=== PATIENT | female | born 1955 | race Caucasian/White ===

== ENCOUNTER 2016-09-07 11:51 | Day surgery (SDC) | payer OTHER ==
[~2016-09-07] VITALS: Ht 170.2 cm; Wt 79.4 kg
[~2016-09-07 11:51] MED LIST: CHOL500051 PO; CYAN50008 PO; LEVO112T4 PO; LORA1TAB PO; Lactated Ringer's 1,000 ML IV ONE; Lactated Ringer's 1,000 ML IV SCH; MELA1TAB10 PO; MIRT15TA6 PO; MetoCLOpramide 5 mg/mL 2 mL Inj IVPUSH PRN; Ondansetron 2 mg/mL 2 mL Inj IVPUSH PRN; PARO40TA3 PO; QUET100T69 PO; RANI-426 PO; SOY155CA PO
[2016-09-07] MEDS ORDERED: Propofol 10,000 mCg/mL 20 mL Inj ONE (11:52)
[2016-09-07 12:06] VITALS: BP 155/97; PULSE 78; RESP 14; O2SAT 98
[2016-09-07] MEDS ORDERED: SUCR1TAB30 PO (12:12)
[2016-09-07] MEDS ORDERED: NAPR220C11 PO (12:12)
--- NOTE | 2016-09-07 13:15 | PCM.HPANE ---
Patient Data Surgeon Admitting Provider: Attending Provider:Dewayne Siddiqui MD Primary Care Physician:Shawna Fay MD Other Provider:Radha Clay Anesthesia Reason for Visit Dysphagia Ht/WT & BMI Height (Feet): 5 Height (Inches): 7 Weight (Kilograms): 79.38 Body Mass Index 27.00 Allergies Coded Allergies: Iodinated Contrast Media - IV Dye (Verified Allergy, Severe, convulsions, 09/20/15) Neuromuscular Blockers, Steroidal (Verified Allergy, Unknown, 09/20/15) pantoprazole sodium (Verified Allergy, Unknown, 09/20/15) Past Anesthesia History Anesthesia History: Denies:: Abnormal Airway, Anesthesia Reactions, Difficult Intubation, Fam Anesthesia Reaction, Fam Malignant Hypertherm, Malignant Hyperthermia Diabetes History Hx Diabetes?: No MRSA MRSA: No Medications Home Meds Incl Beta Sudha: No Active Scripts Quetiapine Fumarate 100 Mg Pbregj322 Mg PO DAILY 30 Days Prov:Guy Chance MD 01/05/15 Lorazepam 1 Mg Tablet1 Mg PO BID PRN For Anxiety or Agitation 14 Days Prov:Guy Chance MD 01/05/15 Reported Medications Naproxen Sodium (Aleve)220 Mg Sdwpfnh963 Mg PO DAILY PRN For Pain 09/07/16 Sucralfate (Carafate)1 Gm Tablet1 Gm PO QID Ref 0 09/07/16 Cyanocobalamin (Vitamin B-12) (Vitamin B12)5,000 Mcg Tab.rapdis5,000 Mcg PO DAILY 10/07/15 Cholecalciferol (Vitamin D3) (Vitamin D)5,000 Unit CapsuleUnknown Dose PO DAILY 09/23/15 Ranitidine 75 Mg Lxsceg90 Mg PO BID 09/23/15 Melatonin (Melatonin 1 mg Tablet)1 Each Tablet1 Mg PO HS Ref 0 09/20/15 Levothyroxine 112 Mcg Xcvshe389 Mcg PO DAILY For Thyroid Replacement 02/21/14 Discontinued Reported Medications Soy Isofla/Blk Cohosh/Mag Bark (Estroven 155 mg Capsule)155 Mg Ducqbvy145 Mg PO DAILY 10/07/15 Paroxetine 40 Mg Bvviqq24 Mg PO HS 30 Days Ref 0 09/23/15 Discontinued Scripts Mirtazapine 15 Mg Jfavcw38 Mg PO HS PRN Insomnia 14 Days Prov:Guy Chance MD 01/05/15 History History of ENT Problems?: Yes HEENT History: Positive for:: Dysphagia (HX OF MULTIPLE ESOPHAGEAL DILATIONS) Hearing Problem Denies:: Abnormal Airway Difficult Intubation Denture Type: None Teeth Condition: Missing Teeth Other HEENT Pertinent History: HEARING AIDES LEFT AT HOME Hx of Heart Problems?: No Cardiovascular History: Denies:: AICD Atrial Fibrillation Chest Pain Congestive Heart Failure Hypertension Pacemaker Valvular Heart Disease Hx of Respiratory Problem?: No Respiratory History: Denies:: Asthma COPD Cough Hemoptysis Pneumonia Tuberculosis Hx Neurologic Problems?: Yes (schizoaffective disorder) Neurological History: Denies:: CVA Hx of GI Problems?: Yes (requires multiple EGD's/dilations) Gastrointestinal History: Denies:: Cirrhosis Diverticulitis Gall Bladder Disease Gastroesphageal Reflux Hiatal Hernia Liver Disease Rectal Bleeding Hx of Problems?: No Genitourinary History: Denies:: HX of Hemodialysis Kidney Stones Urinary Tract Infection HX of Peritoneal Dialysis: No Female Hx: Denies:: Currently Hx Musculoskeletal Problems?: No Musculoskeletal History: Denies:: Fibromyalgia Joint Replacement Hx of Psycho/Social Problems?: Yes Psycho Social History: Positive for:: Anxiety (PARANOIA) Hx Depression (ON AND OFF) Suicide Attempt Denies:: Bipolar Disorder Hx Surgeries?: Yes (HYSTERECTOMY, BROKEN JAW, BROKEN ANKLE, HERNIA REPAIR, GASTRIC REPAIR) Hx Any Other Health Problems?: Yes Other History: Positive for:: Hospitalization Hx Diabetes: No Hx Alcohol Use: Yes (OCC)Hx Substance Use: Yes Smoking Status: Former Smoker Have You Smoked inLast 12 mo: No Stop/Bang Treated for Sleep Apnea?: No Do You Have a CPAP Machine?: No Risk Assessment Category Category 1A: Patient has history of documented sleep apnea, and HAS NOT received any narcotic, sedative or anesthesia administration during this stay. Category 1B: Patient has history of documented sleep apnea, and HAS received any narcotic , sedative or anesthesia administration during this stay Category 2: Patient has SUSPECTED Obstructive Sleep Apnea, and HAS received any narcotic , sedative or anesthesia administration during this stay. Category 3: Patient has SUSPECTED Obstructive Sleep Apnea and HAS NOT received narcotic, sedative or anesthesia administration during this stay. Category 4: Outpatient in Procedural Areas with known sleep apnea or who screen positive for High Risk via the STOP/BANG questionnaire. Exam Exam Vital Signs Vital Signs Date Time Temp Pulse Resp B/P Pulse Ox O2 Delivery O2 Flow Rate FiO2 09/07/16 12:06 36.5 78 14 155/97 98 Room Air General Appearance: Alert, Oriented X3 HEENT/AIRWAY: MP 3, Neck Movement (FROM) Lungs: Clear to Auscultation, Clear to Percussion Heart: Exam Unremarkable, Regular Rate/Rhythm Plan Impression Patient chart reviewed, patient interviewed and anesthestic plan with risks, benefits, and alternatives discussed, and informed consent obtained. ASA Physical Status: ASA3 Severe Disease Anesthetic Plan: MAC Bene/Risks/Altern/Consents: Yes HP Complete Prior to Induction: Yes Evan Jerez MD Sep 07, 2016 13:15
--- NOTE | 2016-09-07 14:02 | PCM.ANEP1 ---
Post Anesthesia Phase 1 PACU Phase 1 Assessment Vital Signs Vital Signs Date Time Temp Pulse Resp B/P Pulse Ox O2 Delivery O2 Flow Rate FiO2 09/07/16 12:06 36.5 78 14 155/97 98 Room Air Anesthetic Administered: MAC Level of Alertness: Awake, talking CHAN's with Equal Strength: Yes Pain: No Nausea or Vomiting: No Cardiovascular Function and Hy: Yes Oxygen Delivery: Room Air Lungs: Clear to Auscultation, Clear to Percussion Comments See anesth record for PACU VS. PACU VSS Evan Jerez MD Sep 07, 2016 14:02
[2016-09-07 14:03] VITALS: BP 144/94; PULSE 70; RESP 16; O2SAT 98
[2016-09-07 14:10] VITALS: BP 142/93; PULSE 70; RESP 16; O2SAT 97
[2016-09-07 14:19] VITALS: BP 146/95; PULSE 68; RESP 16; O2SAT 97
--- NOTE | 2016-09-07 22:56 | ENDO ---
[address] [address] ENDOSCOPY PROCEDURE PATIENT: MELI HUERTA : 1955 MR#: [id number] ADMIT: 09/07/2016 JOB ID: [id number] PROCEDURE: Esophagogastroduodenoscopy. INDICATIONS: Dysphagia. The patient's ASA classification, Mallampati score, medications are as per anesthesia report. INSTRUMENTS USED: GIF H 180 as well as a GIF P190 5.4 mm scope. PROCEDURE DETAILS: After informed consent was obtained, the patient was brought to the GI suite where she was placed on oxygen via nasal cannula and monitored with continuous pulse oximeter, telemetry, and blood pressure monitoring. A time-out was performed. Then, she was placed in a left lateral decubitus position and medications were administered for sedation. A bite block was placed. The standard esophagogastroduodenoscopy scope was inserted through the bite block and advanced to approximately 38 cm. At this point, we encountered a stricture and we were unable to traverse the stricture with the standard EGD scope. The mucosa above the stricture appeared to be ulcerated and friable. At this point, the standard upper endoscope was then removed and the 5 point mm scope was then introduced through the bite block and advanced to the stricture. There was some minimal resistance, however, with gentle pressure, we were able to traverse the stricture into the proximal gastric body. At this point, the scope was then withdrawn and the stricture appeared to be a focal stricture. The scope was then withdrawn and this standard upper endoscope was then introduced back through the bite block and advanced to the site of the stricture. At this point, using TTS balloons, we dilated the stricture from 6 mm to 9 mm sequentially. Following dilation to 9 mm, there was a superficial tear at the stricture. At this point, no further dilation was performed and following dilation to 9 mm, we were able to advance the standard upper endoscope with gentle brush pressure into the gastric body. Retroflexion was performed which revealed just some mild bleeding from the site of the stricture, but otherwise no mass lesions seen. The remainder of the examination which included the duodenum, antrum and gastric body was otherwise unremarkable. The scope was then withdrawn and procedure was completed. FINDINGS: Focal stricture at 38 cm sequentially dilated from 6 mm to 9 mm with a TTS balloon. RECOMMENDATIONS: As patient has allergies to PPI, will recommend that she start ranitidine 150 mg twice a day and will plan for repeat EGD in two weeks with dilation. COMPLICATIONS: None. ESTIMATED BLOOD LOSS: Less than 5 mL.
== END 2016-09-07 23:59 | disposition home or self-care (01) ==
LOC: END 11:51
PROVIDERS: ATTEND Internal Medicine Gastroenterology
DX: K22.2 Esophageal obstruction (principal); R13.10 Dysphagia, unspecified; K44.9 Diaphragmatic hernia without obstruction or gangrene
CPT/HCPCS: 43249; J7120

== ENCOUNTER 2016-09-20 10:35 | Day surgery (SDC) | payer OTHER ==
[~2016-09-20] VITALS: Ht 170.2 cm; Wt 78.9 kg
[~2016-09-20 10:35] MED LIST changes: +0.9% Sodium Chloride 1,000 ML IV SCH; +Dexamethasone 4 mg/mL Inj IVPUSH PRN; +EPHEDrine Sulfate 50 mg/mL Inj IVPUSH PRN; +HYDROmorphone 1 mg/mL Inj IVPUSH PRN; +Labetalol 5 mg/mL 4 mL Inj IV PRN; -Lactated Ringer's 1,000 ML IV SCH; +Lactated Ringer's 500 ML IV PRN; -MIRT15TA6 PO; +NAPR220C11 PO; -PARO40TA3 PO; +Phenylephrine 10,000 mCg/mL Inj IVPUSH PRN; -SOY155CA PO; +SUCR1TAB30 PO; +Sodium Chloride LOK Flush 10 mL Syringe IV PRN; +fentaNYL-PF 50 mCg/mL 2 mL Inj IVPUSH PRN; +hydrALAZINE 20 mg/mL Inj IVPUSH PRN
[2016-09-20] MEDS ORDERED: Ketamine 10 mg/mL 20 mL Inj ONE (10:36)
[2016-09-20] MEDS ORDERED: Propofol 10,000 mCg/mL 20 mL Inj ONE (10:36)
[2016-09-20] MEDS ORDERED: fentaNYL-PF 50 mCg/mL 2 mL Inj ONE (10:36)
[2016-09-20 10:52] VITALS: BP 145/90; PULSE 77; RESP 14; O2SAT 97
[2016-09-20] MEDS ORDERED: UBID50TA3 PO (10:58)
[2016-09-20] MEDS ORDERED: CYCL7.5T27 PO (10:58)
[2016-09-20] MEDS ORDERED: ASCO100089 PO (10:58)
[2016-09-20] MEDS: Lactated Ringer's 1,000 ML IV SCH ×2 (11:03→12:18)
--- NOTE | 2016-09-20 11:56 | PCM.HPANE ---
Patient Data Date of Service: September 20, 2016 Surgeon Admitting Provider: Attending Provider:Dewayne Siddiqui MD Primary Care Physician:Shawna Fay MD Other Provider:Radha Clay Anesthesia Reason for Visit Esophageal Stricture Ht/WT & BMI Height (Feet): 5 Height (Inches): 7 Weight (Kilograms): 78.93 Body Mass Index 27.00 Allergies Coded Allergies: Iodinated Contrast Media - IV Dye (Verified Allergy, Severe, convulsions, 09/20/15) Neuromuscular Blockers, Steroidal (Verified Allergy, Unknown, 09/20/15) pantoprazole sodium (Verified Allergy, Unknown, 09/20/15) Past Anesthesia History Anesthesia History: Denies:: Abnormal Airway, Anesthesia Reactions, Difficult Intubation, Fam Anesthesia Reaction, Fam Malignant Hypertherm, Malignant Hyperthermia Diabetes History Hx Diabetes?: No MRSA MRSA: No Medications Home Meds Incl Beta Sudha: No Active Scripts Quetiapine Fumarate 100 Mg Gbdqdp204 Mg PO DAILY 30 Days Prov:Guy Chance MD 01/05/15 Lorazepam 1 Mg Tablet1 Mg PO BID PRN For Anxiety or Agitation 14 Days Prov:Guy Chance MD 01/05/15 Reported Medications Ascorbic Acid (Vitamin C)1,000 Mg Tab.chew1,000 Mg PO DAILY Ref 0 09/20/16 Ubidecarenone (Coq10)50 Mg Tab.chew50 Mg PO DAILY 09/20/16 Cyclobenzaprine 7.5 Mg Tablet7.5 Mg PO HS PRN Spasm Ref 0 09/20/16 Naproxen Sodium (Aleve)220 Mg Olacigw107 Mg PO DAILY PRN For Pain 09/07/16 Sucralfate (Carafate)1 Gm Tablet1 Gm PO QID Ref 0 09/07/16 Cyanocobalamin (Vitamin B-12) (Vitamin B12)5,000 Mcg Tab.rapdis5,000 Mcg PO DAILY 10/07/15 Cholecalciferol (Vitamin D3) (Vitamin D)5,000 Unit CapsuleUnknown Dose PO DAILY 09/23/15 Ranitidine 75 Mg Jyvvwj57 Mg PO BID 09/23/15 Melatonin (Melatonin 1 mg Tablet)1 Each Tablet1 Mg PO HS Ref 0 09/20/15 Levothyroxine 112 Mcg Cgnrql132 Mcg PO DAILY For Thyroid Replacement 02/21/14 History History of ENT Problems?: Yes HEENT History: Positive for:: Dysphagia (HX OF MULTIPLE ESOPHAGEAL DILATIONS) Hearing Problem Denies:: Abnormal Airway Difficult Intubation Denture Type: None Teeth Condition: Within Normal Limits Hx of Heart Problems?: No Cardiovascular History: Denies:: AICD Atrial Fibrillation Chest Pain Congestive Heart Failure Hypertension Pacemaker Valvular Heart Disease Hx of Respiratory Problem?: No Respiratory History: Denies:: Asthma COPD Cough Hemoptysis Pneumonia Tuberculosis Hx Neurologic Problems?: Yes Neurological History: Denies:: CVA Hx of GI Problems?: Yes Hx of Problems?: No Genitourinary History: Denies:: HX of Hemodialysis Kidney Stones Urinary Tract Infection HX of Peritoneal Dialysis: No Female Hx: Denies:: Currently Hx Musculoskeletal Problems?: No Musculoskeletal History: Denies:: Joint Replacement Hx of Psycho/Social Problems?: Yes Psycho Social History: Positive for:: Anxiety (PARANOIA) Hx Depression (ON AND OFF) Suicide Attempt Denies:: Bipolar Disorder Hx Surgeries?: Yes (HYSTERECTOMY, BROKEN JAW, BROKEN ANKLE, HERNIA REPAIR, GASTRIC REPAIR) Hx Any Other Health Problems?: Yes Other History: Positive for:: Hospitalization Hx Diabetes: No Hx Alcohol Use: Yes (OCC)Hx Substance Use: Yes Smoking Status: Former Smoker Have You Smoked inLast 12 mo: No Stop/Bang Treated for Sleep Apnea?: No Do You Have a CPAP Machine?: No S-Snoring: Do You Snore Loudly: No T-Tired: feel tired, fatigued: No O-Obsered: Observed not breath: No P-Blood Pressure: treated: No B- Body Mass Index > 35 kg/m2: No A- Age over 50: Yes N- Neck Large Circumference: No G- Gender Male: No ZEV Total Score: 1 ZEV Risk Assessment: Low Risk, <3 Yes Risk Assessment Category Category 1A: Patient has history of documented sleep apnea, and HAS NOT received any narcotic, sedative or anesthesia administration during this stay. Category 1B: Patient has history of documented sleep apnea, and HAS received any narcotic , sedative or anesthesia administration during this stay Category 2: Patient has SUSPECTED Obstructive Sleep Apnea, and HAS received any narcotic , sedative or anesthesia administration during this stay. Category 3: Patient has SUSPECTED Obstructive Sleep Apnea and HAS NOT received narcotic, sedative or anesthesia administration during this stay. Category 4: Outpatient in Procedural Areas with known sleep apnea or who screen positive for High Risk via the STOP/BANG questionnaire. Exam Exam Vital Signs Vital Signs Date Time Temp Pulse Resp B/P Pulse Ox O2 Delivery O2 Flow Rate FiO2 09/20/16 10:52 36.4 77 14 145/90 97 Room Air General Appearance: Alert, Oriented X3, Cooperative, No Acute Distress HEENT/AIRWAY: MP 2 Lungs: Clear to Auscultation, Normal Air Movement Heart: Exam Unremarkable, Regular Rate/Rhythm, No Murmurs/Rubs/Gallops Meds/Labs/Diagnostics Admission Meds Current Medications Lactated Ringer's (Lr) 1,000 ml @ 120 mls/hr Q8H20M IV Last administered on t 11:03; Start 09/20/16 at 07:54; Stop 09/20/16 at 15:53 Plan Impression Patient chart reviewed, patient interviewed and anesthestic plan with risks, benefits, and alternatives discussed, and informed consent obtained. ASA Physical Status: ASA2 Mod Systemic Disease Anesthetic Plan: GA Bene/Risks/Altern/Consents: Yes HP Complete Prior to Induction: Yes Iglesia Antonio MD September 20, 2016 11:55
[2016-09-20 12:26] VITALS: BP 150/93; PULSE 77; RESP 16; O2SAT 96
[2016-09-20 12:36] VITALS: BP 163/92; PULSE 68; RESP 16; O2SAT 96
--- NOTE | 2016-09-20 14:02 | PCM.ANEP1 ---
Post Anesthesia Phase 1 PACU Phase 1 Assessment Date of Service: September 20, 2016 Vital Signs Vital Signs Date Time Temp Pulse Resp B/P Pulse Ox O2 Delivery O2 Flow Rate FiO2 09/20/16 12:36 68 16 163/92 96 Room Air 09/20/16 12:26 77 16 150/93 96 Room Air 09/20/16 10:52 36.4 77 14 145/90 97 Room Air Anesthetic Administered: GA Level of Alertness: Awake, talking Pain: No Nausea or Vomiting: No Cardiovascular Function and Hy: Yes Oxygen Delivery: Room Air Lungs: Clear to Auscultation, Normal Air Movement Complications: No Iglesia Antonio MD September 20, 2016 14:02
--- NOTE | 2016-09-20 14:09 | ENDO ---
[address] [address] ENDOSCOPY PROCEDURE PATIENT: MELI HUERTA : 1955 MR#: [id number] ADMIT: 09/20/2016 JOB ID: [id number] DATE OF SERVICE: 09/20/2016 PROCEDURE PERFORMED: Esophagogastroduodenoscopy. INDICATION: Esophageal stricture. The patient previously was here for esophageal stricture and underwent sequential dilation. She presents today, as her dysphagia persists. ASA CLASSIFICATION, MALLAMPATI SCORE AND MEDICATIONS: Please see anesthesia report for details regarding ASA classification, Mallampati score and medications. INSTRUMENT USED: [id number]. PROCEDURE DETAILS: After informed consent was obtained, the patient was brought into the GI suite, where she was placed on oxygen via nasal cannula and monitored with continuous pulse oximeter, telemetry, and blood pressure monitoring. A time-out was performed. Then, she was placed in the left lateral decubitus position, and medications were administered for sedation. A bite block was placed. A standard EGD scope was inserted through the bite block and advanced to approximately 39 cm, where we encountered resistance with the standard upper endoscope. At this point, a 10-12 mm TTS balloon was introduced through the visualized lumen, and sequential dilation was performed starting at 10 mm and extending up to 13.5 mm. Following this, the scope traversed the stricture at 39 cm without difficulty. Retroflexed views in the gastric body revealed normal appearing cardia and fundus. Remainder of the esophagogastroduodenoscopy exam to second portion of duodenum was unremarkable. Following dilation to 13.5 mm there was a superficial tear. There was some mild oozing at the site which, however, resolved on its own. The site was then copiously irrigated and following that, the superficial tear was seen. However, no bleeding was noted. The remainder of the esophagus otherwise unremarkable. IMPRESSION: Stricture at 39 cm, dilated from 10 mm to 13.5 mm. RECOMMENDATIONS: 1. Continue H2 joslyn b.i.d., as the patient has allergies to PPI. 2. Repeat EGD in two weeks. COMPLICATIONS: None. ESTIMATED BLOOD LOSS: Less than 5 mL.
== END 2016-09-20 23:59 | disposition home or self-care (01) ==
LOC: END 10:35
PROVIDERS: ATTEND Internal Medicine Gastroenterology
DX: K22.2 Esophageal obstruction (principal); R10.11 Right upper quadrant pain; F41.8 Other specified anxiety disorders; Z90.710 Acquired absence of both cervix and uterus; Z87.891 Personal history of nicotine dependence
CPT/HCPCS: 43249; J3010; J7120

== ENCOUNTER 2016-10-06 00:21 | Day surgery (SDC) | payer OTHER ==
[~2016-10-06] VITALS: Ht 170.2 cm; Wt 78.9 kg
[~2016-10-06 00:21] MED LIST changes: -0.9% Sodium Chloride 1,000 ML IV SCH; +ASCO100089 PO; +CYCL7.5T27 PO; -Dexamethasone 4 mg/mL Inj IVPUSH PRN; -EPHEDrine Sulfate 50 mg/mL Inj IVPUSH PRN; -HYDROmorphone 1 mg/mL Inj IVPUSH PRN; -Labetalol 5 mg/mL 4 mL Inj IV PRN; -Lactated Ringer's 1,000 ML IV ONE; -Lactated Ringer's 500 ML IV PRN; -MetoCLOpramide 5 mg/mL 2 mL Inj IVPUSH PRN; -Ondansetron 2 mg/mL 2 mL Inj IVPUSH PRN; -Phenylephrine 10,000 mCg/mL Inj IVPUSH PRN; -Sodium Chloride LOK Flush 10 mL Syringe IV PRN; +UBID50TA3 PO; -fentaNYL-PF 50 mCg/mL 2 mL Inj IVPUSH PRN; -hydrALAZINE 20 mg/mL Inj IVPUSH PRN
[2016-10-06] MEDS ORDERED: Propofol 10,000 mCg/mL 20 mL Inj ONE (00:22)
[2016-10-06] MEDS ORDERED: Lactated Ringer's 1,000 ML IV ONE ×2 (06:00→11:52)
[2016-10-06 10:47] VITALS: BP 162/108; PULSE 75; RESP 17; O2SAT 98
--- NOTE | 2016-10-06 11:24 | PCM.HPANE ---
Patient Data Surgeon Admitting Provider: Attending Provider:Dewayne Siddiqui MD Primary Care Physician:Shawna Fay MD Other Provider:Radha Clay Anesthesia Reason for Visit Dysphagia Ht/WT & BMI Height (Feet): 5 Height (Inches): 7 Weight (Kilograms): 78.93 Body Mass Index 27.00 Allergies Coded Allergies: Iodinated Contrast Media - Oral and (Verified Allergy, Severe, convulsions , 10/05/16) Neuromuscular Blockers, Steroidal (Verified Allergy, Unknown, 10/05/16) pantoprazole sodium (Verified Allergy, Unknown, 10/05/16) Past Anesthesia History Anesthesia History: Denies:: Abnormal Airway, Anesthesia Reactions, Difficult Intubation, Fam Anesthesia Reaction, Fam Malignant Hypertherm, Malignant Hyperthermia Diabetes History Hx Diabetes?: No MRSA MRSA: No Medications Active Scripts Quetiapine Fumarate 100 Mg Acnvlt308 Mg PO DAILY 30 Days Prov:Guy Chance MD 01/05/15 Lorazepam 1 Mg Tablet1 Mg PO BID PRN For Anxiety or Agitation 14 Days Prov:Guy Chance MD 01/05/15 Reported Medications Ascorbic Acid (Vitamin C)1,000 Mg Tab.chew1,000 Mg PO DAILY Ref 0 09/20/16 Ubidecarenone (Coq10)50 Mg Tab.chew50 Mg PO DAILY 09/20/16 Cyclobenzaprine 7.5 Mg Tablet7.5 Mg PO HS PRN Spasm Ref 0 09/20/16 Cyanocobalamin (Vitamin B-12) (Vitamin B12)5,000 Mcg Tab.rapdis5,000 Mcg PO DAILY 10/07/15 Cholecalciferol (Vitamin D3) (Vitamin D)5,000 Unit CapsuleUnknown Dose PO DAILY 09/23/15 Ranitidine 75 Mg Xlvcee01 Mg PO BID 09/23/15 Melatonin (Melatonin 1 mg Tablet)1 Each Tablet1 Mg PO HS Ref 0 09/20/15 Levothyroxine 112 Mcg Wwwzrb688 Mcg PO DAILY For Thyroid Replacement 02/21/14 Discontinued Reported Medications Naproxen Sodium (Aleve)220 Mg Klismzv975 Mg PO DAILY PRN For Pain 09/07/16 Sucralfate (Carafate)1 Gm Tablet1 Gm PO QID Ref 0 09/07/16 History History of ENT Problems?: Yes HEENT History: Positive for:: Dysphagia (HX OF MULTIPLE ESOPHAGEAL DILATIONS) Hearing Problem Denies:: Abnormal Airway Cataracts Difficult Intubation Glaucoma Sinus Problem TMJ Denture Type: None Teeth Condition: Within Normal Limits Hx of Heart Problems?: No Cardiovascular History: Denies:: AICD Abdominal Aortic Aneurism Atrial Fibrillation Cardiac Surgery Chest Pain Congestive Heart Failure Coronary Artery Disease Edema Heart Murmur Hypertension Irregular Heartbeat Pacemaker Peripheral Vascular Rheumatic Fever Thrombophlebitis Valvular Heart Disease Hx of Respiratory Problem?: No Respiratory History: Denies:: Asthma COPD Chest Surgery Cough Dyspnea Emphysema Hemoptysis Oxygen Administration Pneumonia Pulmonary Embolism Tuberculosis Use of C-PAP Machine Use of Inhalers / NEBS Hx Neurologic Problems?: Yes Neurological History: Denies:: Alzheimer's Disease CVA Dementia Dizziness Headaches Multiple Sclerosis Parkinson's Disease Peripheral Neuropathy Seizures TIA Hx of GI Problems?: Yes Gastrointestinal History: Denies:: Cirrhosis Diverticulitis Gall Bladder Disease Gastroesphageal Reflux Gastrointestinal Bleeding Heartburn Hepatitis Hiatal Hernia Liver Disease Rectal Bleeding Hx of Problems?: No Genitourinary History: Denies:: HX of Hemodialysis Kidney Stones Urinary Tract Infection HX of Peritoneal Dialysis: No Female Hx: Denies:: Currently Endometriosis Pelvic Inflammatory Problems with Breasts? Skin History: Denies:: History Skin Disorders? Pressure Ulcers Hx Musculoskeletal Problems?: No Musculoskeletal History: Denies:: Back Injury Degenerative Joint Fibromyalgia Joint Replacement Musculoskeletal Trauma Myasthenia Gravis Osteoarthritis Rheumatoid Arthritis Systemic Lupus Hx of Psycho/Social Problems?: Yes Psycho Social History: Positive for:: Anxiety (PARANOIA) Hx Depression (ON AND OFF) Suicide Attempt Denies:: Bipolar Disorder Hx Surgeries?: Yes (HYSTERECTOMY, BROKEN JAW, BROKEN ANKLE, HERNIA REPAIR, GASTRIC REPAIR) Hx Any Other Health Problems?: Yes Other History: Positive for:: Hospitalization Hx Diabetes: No Hx Alcohol Use: Yes (OCC)Hx Substance Use: Yes Smoking Status: Former Smoker Have You Smoked inLast 12 mo: No Stop/Bang Treated for Sleep Apnea?: No Do You Have a CPAP Machine?: No S-Snoring: Do You Snore Loudly: No T-Tired: feel tired, fatigued: No O-Obsered: Observed not breath: No P-Blood Pressure: treated: Yes B- Body Mass Index > 35 kg/m2: No A- Age over 50: No N- Neck Large Circumference: No G- Gender Male: No ZEV Total Score: 1 Risk Assessment Category Category 1A: Patient has history of documented sleep apnea, and HAS NOT received any narcotic, sedative or anesthesia administration during this stay. Category 1B: Patient has history of documented sleep apnea, and HAS received any narcotic , sedative or anesthesia administration during this stay Category 2: Patient has SUSPECTED Obstructive Sleep Apnea, and HAS received any narcotic , sedative or anesthesia administration during this stay. Category 3: Patient has SUSPECTED Obstructive Sleep Apnea and HAS NOT received narcotic, sedative or anesthesia administration during this stay. Category 4: Outpatient in Procedural Areas with known sleep apnea or who screen positive for High Risk via the STOP/BANG questionnaire. Exam Exam Vital Signs Vital Signs Date Time Temp Pulse Resp B/P Pulse Ox O2 Delivery O2 Flow Rate FiO2 10/06/16 10:47 75 17 162/108 98 Room Air General Appearance: Alert, Oriented X3, Cooperative, No Acute Distress HEENT/AIRWAY: MP 2, Neck Movement (FROM), Mouth Opening Lungs: Normal Air Movement Heart: Regular Rate/Rhythm Plan Impression Patient chart reviewed, patient interviewed and anesthestic plan with risks, benefits, and alternatives discussed, and informed consent obtained. NPO per Anesth. Guidelines: Yes ASA Physical Status: ASA2 Mod Systemic Disease Anesthetic Plan: GA, MAC Bene/Risks/Altern/Consents: Yes HP Complete Prior to Induction: Yes Jorge Melo MD October 06, 2016 11:24
[2016-10-06] MEDS ORDERED: Ondansetron 2 mg/mL 2 mL Inj IVPUSH PRN (11:25)
[2016-10-06] MEDS ORDERED: MetoCLOpramide 5 mg/mL 2 mL Inj IVPUSH PRN (11:25)
[2016-10-06] MEDS ORDERED: Lactated Ringer's 1,000 ML IV SCH (11:25)
[2016-10-06 11:58] VITALS: BP 192/97; PULSE 76; RESP 16; O2SAT 96
[2016-10-06 12:08] VITALS: BP 166/106; PULSE 74; RESP 16; O2SAT 98
[2016-10-06 12:18] VITALS: BP 165/99; PULSE 75; RESP 16; O2SAT 99
--- NOTE | 2016-10-06 23:22 | ENDO ---
[address] [address] ENDOSCOPY PROCEDURE PATIENT: MELI HUERTA : 1955 MR#: [id number] ADMIT: 10/06/2016 JOB ID: [id number] PROCEDURE PERFORMED: Esophagogastroduodenoscopy. INDICATIONS: Dysphagia. Patient with a history of distal esophageal stricture likely from gastroesophageal reflux presents to endoscopy today for repeat endoscopy to see if dilation performed two weeks ago is adequate. The patient has no new complaints of dysphagia. States that she has been tolerating most foods and is able to swallow medications without difficulty. Please see Dr. Jorge Melo's anesthesia report for details regarding ASA classification, Mallampati score, and medications. INSTRUMENT USED: Was the [id number]. PROCEDURE DETAILS: After informed consent was obtained, the patient was brought to the GI suite, where she was placed on oxygen via nasal cannula and monitored with continuous pulse oximeter, telemetry, and blood pressure monitoring. A time-out was performed. Then, she was placed in the left lateral decubitus position and medications were administered for sedation. A bite block was placed. The standard EGD scope was then inserted through the bite block and advanced under direct visualization to the GE junction where minimal resistance was encountered. We were, however, with gentle pressure, able to traverse the GE junction and advance the scope into the duodenum. The remainder of the exam was otherwise unremarkable. We then withdrew the scope back to the GE junction and dilated the GE junction starting at 11 mm, extending to 13.5 mm. Following dilation to 13.5 mm, there appeared to be a superficial tear at the 7 o'clock position; therefore, no further dilation was performed. The tear was irrigated. Minimal amount of bleeding was seen; however, this stopped without any intervention. The remainder of the esophagus was otherwise unremarkable. IMPRESSION: Gastroesophageal junction stricture status post dilation from 11 mm to 13.5 mm. RECOMMENDATIONS: 1. Continue H2 joslyn b.i.d. 2. Will plan for repeat endoscopy if patient has symptoms. 3. Recommend reflux precautions. COMPLICATIONS: None. ESTIMATED BLOOD LOSS: Less than 5 mL.
== END 2016-10-06 23:59 | disposition home or self-care (01) ==
LOC: END 00:21
PROVIDERS: ATTEND Internal Medicine Gastroenterology
DX: K22.2 Esophageal obstruction (principal); K21.9 Gastro-esophageal reflux disease without esophagitis; R13.10 Dysphagia, unspecified
CPT/HCPCS: 43249; J7120

== ENCOUNTER 2016-11-09 15:10 | Day surgery (SDC) | payer OTHER ==
[~2016-11-09] VITALS: Ht 170.2 cm; Wt 78.9 kg
[~2016-11-09 15:10] MED LIST changes: +Lactated Ringer's 1,000 ML IV ONE; +Lactated Ringer's 1,000 ML IV SCH; -NAPR220C11 PO; -SUCR1TAB30 PO
[2016-11-09] MEDS ORDERED: Propofol 10 mg/mL 20 mL Inj ONE (15:11)
[2016-11-09 15:26] VITALS: BP 139/84; PULSE 83; RESP 16; O2SAT 97
[2016-11-09 16:01] VITALS: BP 175/98; PULSE 71; RESP 16; O2SAT 95
[2016-11-09 16:11] VITALS: BP 141/91; PULSE 74; RESP 16; O2SAT 96
[2016-11-09 16:22] VITALS: BP 147/91; PULSE 72; RESP 16; O2SAT 96
--- NOTE | 2016-11-09 16:46 | ENDO ---
[address] [address] ENDOSCOPY PROCEDURE PATIENT: MELI HUERTA : 1955 MR#: [id number] ADMIT: 11/09/2016 JOB ID: [id number] DATE: 11/09/2016 PROCEDURE: Esophagogastroduodenoscopy. INDICATIONS: Dysphagia. The patient today in clinic states that she has been tolerating solid foods. She does notice some mild minimal dysphagia with certain food items, however, for the most part she is able to swallow without difficulty. She has been swallowing pills without difficulty. She also reports recently eating steak and not having a problem. Please see anesthesia report for details regarding ASA classification, Mallampati score, and medications. INSTRUMENT USED: GIF H 180 J. PROCEDURE IN DETAIL: After informed consent was obtained, the patient was brought into the GI suite, where she was placed on oxygen via nasal cannula and monitored with continuous pulse oximeter, telemetry, and blood pressure monitoring. A time-out was performed. Then, she was placed in the left lateral decubitus position and medications were administered for sedation. A bite block was placed. The standard EGD scope was inserted through the bite block and advanced to approximately 38 cm where we did encounter some mild resistance. With gentle pressure, I was able to advance the scope to the second portion of the duodenum without difficulty. The EGD scope was then withdrawn back into the gastric body where retroflexion was performed which was unremarkable. The EGD scope was then brought back to the GE junction where there was some heme noted. At this point, I elected to dilate the GE junction starting with a 12 mm balloon and then sequentially increasing to 15 mm. At 15 mm, there was a superficial tear noted at the GE junction with some was some minimal bleeding. At this point, no further dilation was performed. The bleeding site was irrigated and inspected, and there was no evidence of perforation. The tear did appear to be superficial. The scope was then withdrawn and the procedure was completed. IMPRESSION: Gastroesophageal junction with stricture, dilation from 12 mm to 15 mm sequentially. RECOMMENDATIONS: 1. Clear liquid diet today and advance to a regular diet tomorrow. 2. Continue ranitidine b.i.d. 3. Follow up in GI clinic in two to four weeks. COMPLICATIONS: None. ESTIMATED BLOOD LOSS: Less than 10 mL.
--- NOTE | 2016-11-09 18:55 | PCM.HPANE ---
Patient Data Surgeon Admitting Provider: Attending Provider:Dewayne Siddiqui MD Primary Care Physician:Shawna Fay MD Other Provider:Radha Clay Anesthesia Reason for Visit Dysphagia Ht/WT & BMI Body Mass Index Allergies Coded Allergies: Iodinated Contrast Media - Oral and (Verified Allergy, Severe, convulsions , 10/05/16) Neuromuscular Blockers, Steroidal (Verified Allergy, Unknown, 10/05/16) pantoprazole sodium (Verified Allergy, Unknown, 10/05/16) Past Anesthesia History Anesthesia History: Denies:: Abnormal Airway, Anesthesia Reactions, Difficult Intubation, Fam Anesthesia Reaction, Fam Malignant Hypertherm, Malignant Hyperthermia Diabetes History Hx Diabetes?: No MRSA MRSA: No Medications Active Scripts Quetiapine Fumarate 100 Mg [id number] Mg PO DAILY 30 Days Prov:Guy Chance MD 01/05/15 Lorazepam 1 Mg Tablet1 Mg PO BID PRN For Anxiety or Agitation 14 Days Prov:Guy Chance MD 01/05/15 Reported Medications Ascorbic Acid (Vitamin C)1,000 Mg Tab.chew1,000 Mg PO DAILY Ref 0 09/20/16 Ubidecarenone (Coq10)50 Mg Tab.chew50 Mg PO DAILY 09/20/16 Cyclobenzaprine 7.5 Mg Tablet7.5 Mg PO HS PRN Spasm Ref 0 09/20/16 Cyanocobalamin (Vitamin B-12) (Vitamin B12)5,000 Mcg Tab.rapdis5,000 Mcg PO DAILY 10/07/15 Cholecalciferol (Vitamin D3) (Vitamin D)5,000 Unit CapsuleUnknown Dose PO DAILY 09/23/15 Ranitidine 75 Mg [id number] Mg PO BID 09/23/15 Melatonin (Melatonin 1 mg Tablet)1 Each Tablet1 Mg PO HS Ref 0 09/20/15 Levothyroxine 112 Mcg [id number] Mcg PO DAILY For Thyroid Replacement 02/21/14 History History of ENT Problems?: Yes HEENT History: Positive for:: Dysphagia (HX OF MULTIPLE ESOPHAGEAL DILATIONS) Hearing Problem Denies:: Abnormal Airway Cataracts Difficult Intubation Sinus Problem TMJ Denture Type: None Teeth Condition: Within Normal Limits Hx of Heart Problems?: No Cardiovascular History: Denies:: AICD Abdominal Aortic Aneurism Atrial Fibrillation Cardiac Surgery Chest Pain Congestive Heart Failure Edema Heart Murmur Hypertension Irregular Heartbeat Pacemaker Rheumatic Fever Thrombophlebitis Valvular Heart Disease Hx of Respiratory Problem?: No Respiratory History: Denies:: Asthma COPD Chest Surgery Cough Dyspnea Emphysema Hemoptysis Oxygen Administration Pneumonia Pulmonary Embolism Tuberculosis Use of C-PAP Machine Hx Neurologic Problems?: Yes Neurological History: Denies:: Alzheimer's Disease CVA Dementia Dizziness Headaches Multiple Sclerosis Parkinson's Disease Seizures Hx of GI Problems?: Yes Hx of Problems?: No Genitourinary History: Denies:: HX of Hemodialysis Kidney Stones Urinary Tract Infection HX of Peritoneal Dialysis: No Female Hx: Denies:: Currently Endometriosis Pelvic Inflammatory Problems with Breasts? Skin History: Denies:: History Skin Disorders? Pressure Ulcers Hx Musculoskeletal Problems?: No Musculoskeletal History: Denies:: Back Injury Degenerative Joint Joint Replacement Musculoskeletal Trauma Systemic Lupus Hx of Psycho/Social Problems?: Yes Psycho Social History: Positive for:: Anxiety (PARANOIA) Hx Depression (ON AND OFF) Suicide Attempt Denies:: Bipolar Disorder Hx Surgeries?: Yes (HYSTERECTOMY, BROKEN JAW, BROKEN ANKLE, HERNIA REPAIR, GASTRIC REPAIR) Hx Any Other Health Problems?: Yes Other History: Positive for:: Hospitalization Hx Diabetes: No Hx Alcohol Use: Yes (OCC)Hx Substance Use: Yes Smoking Status: Former Smoker Have You Smoked inLast 12 mo: No Stop/Bang Risk Assessment Category Category 1A: Patient has history of documented sleep apnea, and HAS NOT received any narcotic, sedative or anesthesia administration during this stay. Category 1B: Patient has history of documented sleep apnea, and HAS received any narcotic , sedative or anesthesia administration during this stay Category 2: Patient has SUSPECTED Obstructive Sleep Apnea, and HAS received any narcotic , sedative or anesthesia administration during this stay. Category 3: Patient has SUSPECTED Obstructive Sleep Apnea and HAS NOT received narcotic, sedative or anesthesia administration during this stay. Category 4: Outpatient in Procedural Areas with known sleep apnea or who screen positive for High Risk via the STOP/BANG questionnaire. Exam Exam General Appearance: Alert, Oriented X3, Cooperative, No Acute Distress HEENT/AIRWAY: MP 2 Lungs: Clear to Auscultation Heart: Exam Unremarkable Plan Impression Patient chart reviewed, patient interviewed and anesthestic plan with risks, benefits, and alternatives discussed, and informed consent obtained. NPO per Anesth. Guidelines: Yes ASA Physical Status: ASA2 Mod Systemic Disease Anesthetic Plan: MAC Bene/Risks/Altern/Consents: Yes HP Complete Prior to Induction: Yes Serjio Wong MD Nov 09, 2016 09:34
== END 2016-11-09 23:59 | disposition home or self-care (01) ==
LOC: END 15:10
PROVIDERS: ATTEND Internal Medicine Gastroenterology
DX: K22.2 Esophageal obstruction (principal); R13.10 Dysphagia, unspecified; R10.11 Right upper quadrant pain; R11.10 Vomiting, unspecified; F41.8 Other specified anxiety disorders; Z90.710 Acquired absence of both cervix and uterus; Z98.84 Bariatric surgery status; Z87.891 Personal history of nicotine dependence
CPT/HCPCS: 43249; J7120